=== PATIENT | female | born 1960 | race Caucasian/White ===

== ENCOUNTER 2019-07-02 16:33 | Emergency (ER) | payer OTHER ==
[~2019-07-02] VITALS: Ht 157.5 cm; Wt 102.3 kg
[2019-07-02 17:15] VITALS: BP 151/81; Ht 157.5 cm; Wt 102.3 kg
[2019-07-02] MEDS ORDERED: NORVASC10 MG PO (17:17)
[2019-07-02] MEDS ORDERED: BENICAR20 MG PO (17:17)
[2019-07-02] MEDS ORDERED: CIPRO500 MG PO (18:51)
[2019-07-02] MEDS ORDERED: ULTRAM50 MG PO (18:51)
== END 2019-07-02 19:27 | disposition home or self-care (01) ==
LOC: D.ER 16:33
DX: S91.332A Puncture wound without foreign body, left foot, initial encounter (principal); I10 Essential (primary) hypertension; W22.8XXA Striking against or struck by other objects, initial encounter; Y93.01 Activity, walking, marching and hiking; Y92.89 Other specified places as the place of occurrence of the external cause